=== PATIENT | female | born 1975 | race African-American/Black ===

== ENCOUNTER 2016-10-18 08:41 | Emergency (ER) | payer BC ==
[~2016-10-18 08:41] MED LIST: NYQUIL OR; THERAFLU OR; TYLENOL PM OR
== END 2016-10-18 09:45 | disposition home or self-care (01) ==
LOC: ER 08:41
DX: S93.602A Unspecified sprain of left foot, initial encounter (principal); Z91.09 Other allergy status, other than to drugs and biological substances; Z79.899 Other long term (current) drug therapy; W10.9XXA Fall (on) (from) unspecified stairs and steps, initial encounter
CPT/HCPCS: 73630-RT; 99283